=== PATIENT | female | born 1985 | race Two or more races ===

== ENCOUNTER 2017-03-31 01:07 | Emergency (ER) | payer MEDICAID ==
[~2017-03-31] VITALS: Ht 152.4 cm; Wt 80.3 kg
[~2017-03-31 01:07] MED LIST: CIPROFLOXACIN500 M2 ORAL; MAGNESIUM CITR296 M1 PO; NORCO 5-325 TA1 EACH ORAL; ZOFRAN ODT4 MG ORAL
[2017-03-31] MEDS ORDERED: Norco 5mg/325mg tab PO ONE (01:30)
[2017-03-31 01:32] VITALS: BP 135/96
[2017-03-31] MEDS ORDERED: NORCO 5-325 TA1 EACH ORAL (02:12)
[2017-03-31] MEDS ORDERED: IBUPROFEN600 MG ORAL (02:12)
--- NOTE | 2017-03-31 02:23 | Emergency Room Report ---
History of Present Illness General Chief Complaint: Lower Extremity Injury Source: Patient Present Illness HPI 31-year-old female presents ED complaining of left knee pain. Patient said she mechanical trip and fall tonight, landing on her left knee. denies hitting her head or LOC. Denies any other injuries. Patient notes pain to left knee. 8/10 , throbbing, nonradiating. Unable to bend the knee. No other aggravating relieving factors. Denies any other associated symptoms Allergies: Coded Allergies: No Known Allergies (Unverified , 08/06/14) Patient History Past Medical History: none Past Surgical History: none Pertinent Family History: none Social History: Denies: smoking, alcohol use, drug use Last Menstrual Period: 2 days ago Now: No Immunizations: UTD Reviewed Nursing Documentation: PMH: Agreed, PSxH: Agreed Nursing Documentation-PMH Past Medical History: No Stated History Hx Cardiac Problems: No Hx Hypertension: No Hx Pacemaker: No Hx Asthma: No Hx COPD: No Hx Diabetes: No Hx Cancer: No Hx Gastrointestinal Problems: No - KIDNEY STONE Hx Dialysis: No Hx Neurological Problems: No Hx Cerebrovascular Accident: No Hx Seizures: No Review of Systems All Other Systems: negative except mentioned in HPI Physical Exam Vital Signs Date Time Temp Pulse Resp B/P (MAP) Pulse Ox O2 Delivery O2 Flow Rate FiO2 03/31/17 01:10 99.5 111 16 135/96 100 Room Air Sp02 EP Interpretation: reviewed, normal General Appearance: alert, GCS 15, non-toxic, mild distress Head: normocephalic Eyes: bilateral eye normal inspection, bilateral eye PERRL ENT: normal ENT inspection Neck: normal inspection Respiratory: normal inspection Cardiovascular #1: normal inspection Gastrointestinal: normal inspection Rectal: deferred Genitourinary: no CVA tenderness Musculoskeletal: decreased range of motion, tender - L knee Neurologic: alert, oriented x3, responsive, motor strength/tone normal, sensory intact, speech normal Psychiatric: normal inspection Skin: normal inspection Lymphatic: normal inspection Procedures Splinting Splinting : Consent: Verbal Pre-Made Type: JUANCHO wrap - L knee Pre-Proc Neuro Vasc Exam: normal Post-Proc Neuro Vasc Exam: normal Patient Tolerated: Well Complications: None Medical Decision Making Diagnostic Impression: Primary Impression: Knee injury Qualified Codes: S89.92XA - Unspecified injury of left lower leg, initial encounter ER Course Hospital Course 31-year-old F presents to ED complaining of L knee pain s/p trip and fall Differential diagnoses include: Fracture, dislocation, sprain, contusion Clinical course Patient placed on stretcher. After initial history and physical, I ordered pain medications and Xrays of L knee Xrays prelim read shows no acute fracture/dislocation. placed in juancho wrap, given crutches Diagnosis - knee injury Stable and discharged to home with prescription for Motrin, NOrco. apply ice, keep elevated. weight bear as tolerated. Followup with PMD. Return to ED if symptoms recur or worsen Other X-Ray Diagnostic Results Other X-Ray Diagnostic Results : X-Ray ordered: L knee # of Views/Limited Vs Complete: 3 View Indication: Pain EP Interpretation: Yes Interpretation: no dislocation, no soft tissue swelling, no fractures Impression: No acute disease Electronically Signed by: Electronically signed by Tristen Rehman MD Last Vital Signs Date Time Temp Pulse Resp B/P (MAP) Pulse Ox O2 Delivery O2 Flow Rate FiO2 03/31/17 01:32 99.5 109 16 135/96 100 Room Air Status: improved Disposition: HOME, SELF-CARE Condition: Stable Scripts Hydrocodone Bit/Acetaminophen 5-325* (NORCO 5-325*) 1 Each Tablet 1 TAB ORAL Q6H Y for For Pain, #10 TAB 0 Refills Prov: TRISTEN REHMAN M.D. 03/31/17 Ibuprofen* (MOTRIN*) 600 Mg Tablet 600 MG ORAL Q8H Y for For Pain, #30 TAB 0 Refills Prov: TRISTEN REHMAN M.D. 03/31/17 Patient Instructions: Knee Pain, [id number] TRISTEN REHMAN M.D. Mar 31, 2017 02:23
[2017-03-31 02:30] VITALS: BP 132/91
--- NOTE | 2017-04-02 16:03 | Diagnostic Imaging Report ---
Indication: Left knee pain Technique: XRAY Knee 3v L Comparison: None Findings: There is no acute fracture or dislocation. Bone mineralization is normal. There is no joint effusion. Impression: No acute osseous abnormality.
== END 2017-03-31 02:30 | disposition home or self-care (01) ==
LOC: EMR 01:24
DX: S89.82XA Other specified injuries of left lower leg, initial encounter (principal); W01.0XXA Fall on same level from slipping, tripping and stumbling without subsequent striking against object, initial encounter; Y92.89 Other specified places as the place of occurrence of the external cause
CPT/HCPCS: 99284